=== PATIENT | female | born 1960 | race Caucasian/White ===

== ENCOUNTER 2018-08-20 06:17 | Emergency (ER) | payer BC ==
[~2018-08-20] VITALS: Ht 160 cm; Wt 62.6 kg
--- NOTE | 2018-08-20 06:21 | NUR ---
PT CAME TO ER COMPLAINING OF R ARM PAIN AFTER FALLING YESTERDAY. NO DEFORMITIES NOTED. PT STATES PAIN IS 3/10 IF SHE HOLDS IT STILL BUT 8/10 IF SHE MOVES THE ARM. PT IS AAXO4. RESPIRATIONS ARE EVEN AND UNLABORED. PT WAITING EVAL FROM ER MD.
--- NOTE | 2018-08-20 06:55 | NUR ---
XRAY AT BEDSIDE.
--- NOTE | 2018-08-20 07:13 | NUR ---
received report from Blanca TSE for shani. PT sitting in a chair, in no apparent distress noted. will continue to monitor accordingly.
[2018-08-20 07:53] VITALS: BP 128/78
--- NOTE | 2018-08-20 07:55 | NUR ---
Patient discharged to home in stable condition. Written and verbal after care instructions given. Patient verbalizes understanding of instruction.
== END 2018-08-20 07:54 | disposition home or self-care (01) ==
LOC: ER 06:20
DX: S52.121A Displaced fracture of head of right radius, initial encounter for closed fracture (principal); I10 Essential (primary) hypertension; W18.39XA Other fall on same level, initial encounter; Y93.89 Activity, other specified; Y92.89 Other specified places as the place of occurrence of the external cause; Y99.8 Other external cause status
CPT/HCPCS: 73080; 73090; 99283; A4606; Z7610